=== PATIENT | female | born 1990 | race Caucasian/White ===

== ENCOUNTER 2017-03-22 10:36 | Emergency (ER) | payer BC, OTHER, SELFPAY ==
[2017-03-22] MEDS ORDERED: Sodium Chloride 0.9% 10 ML Syringe FLUSH PRN (11:24)
[2017-03-22] MEDS ORDERED: Ondansetron 4 MG/2 ML SDV IVPUSH ONE (11:25)
[2017-03-22] MEDS ORDERED: HYDROmorphone 1 MG/ML Syringe IVPUSH ONE (11:25)
--- NOTE | 2017-03-22 11:28 | EDM.PDOC ---
ED HPI - General Chief Complaint: KNIFE CUTTER Problem Stated Complaint: POSS. MISCARRIAGE Time Seen by Provider: 03/22/17 11:19 Source of Information: Reports: Patient History Limitations: Reports: No limitations - History of Present Illness INITIAL COMMENTS - FREE TEXT/NARRATIVE: Patient is a 26-year-old female who presents to the ED complaining of vaginal bleeding and some abdominal discomfort. Patient states Monday became nauseated with no emesis. Monday morning developed bleeding from vagina described as bright/dark blood, clear fluid, that was intermittent. She had some intermittent discomfort to her lower abdomen described as a crampy sensation. This morning she awoke with increased blood and clear fluid coming from vagina. She's also noticed some tissue in the toilet and in the shower this morning. Tissue was small in size. States just prior to arrival she's saturating through 2 tampons and 2 pads in a matter of one hour. Still has a sensation that blood is leaking from vagina. States she normally has menstrual cycle 3 times a year. States normally comes on suddenly with approximate one-hour of cramping with no discomfort thereafter. She is unaware when her last menstrual cycle was. She is not on control. She is sexually active and does not use protection. She does note increased sensitivity to her breasts last week and took a test that was negative otherwise she denies any other etiology for potential vaginal bleeding. Denies any additional past medical history, current prescription medications, smoking, alcohol use, recreational drug use. She just recently moved here from [place] and does not have a primary care provider KNIFE CUTTER specialist she sees. She does not know her blood type. She has no history. Timing/Duration: Reports: Constant, Waxing/waning Location, : Reports: abdomen (suprapubic), lower back Quality: Reports: ache Severity: mild Improves with: Reports: None Worsens with: Reports: Other (palpation) Associated Symptoms: Reports: vaginal bleeding, vaginal clots, vaginal tissue, vaginal fluid, moderate amount Treatments PRODUCTION EDITOR: Reports: Other (see below) (none stated) - Related Data Allergies/ADRs: Allergies Allergy/AdvReac Type Severity Reaction Status Date / Time No Known Allergies Allergy Verified 03/22/17 11:03 Home Meds: Home Meds Norgestrel-Ethinyl Estradiol [Cryselle-28 Tablet] 1 each PO QAM #28 tablet 03/22 [Rx] ED ROS GENERAL - Review of Systems Review Of Systems: See Below Constitutional: Denies: fever, chills, decreased appetite Respiratory: Denies: Shortness of Breath, Cough, Sputum Cardiovascular: Denies: Chest pain, Dyspnea on exertion, Lightheadedness, Palpitations GI/Abdominal: Reports: Abdominal pain, Nausea. Denies: Black stool, Bloody stool, Constipation, Diarrhea, Decreased appetite, Distension, Flatus, Hematemesis, Melena, Vomiting : Reports: dysuria, hematuria. Denies: flank pain, frequency, urgency Musculoskeletal: Reports: back pain Neurological: Denies: Dizziness, Difficulty Walking Hematologic/Lymphatic: Denies: anemia, easy bleeding, easy bruising ED EXAM - Physical Exam Exam: See Below Exam Limited By: No limitations General Appearance: alert, WD/WN, no apparent distress Ears: hearing grossly normal Nose: normal inspection Throat/Mouth: Normal inspection, Normal oropharynx, Normal voice, No airway compromise Neck: normal inspection, supple Respiratory/Chest: no respiratory distress, lungs clear, normal breath sounds, no accessory muscle use, chest non-tender Cardiovascular: normal peripheral pulses, regular rate, rhythm, no murmur GI/Abdominal: normal bowel sounds, soft, no organomegaly, no distention, tender (suprapubic) Rectal Exam: Deferred (Female) Exam: Normal bimanual exam, Cervical dilatation (mild), Vaginal bleeding. No: Adnexal tenderness, Cervical discharge, Cervical fluid, Cervical lesions, Cervix motion tenderness, Products of conception, Vaginal discharge, Vaginal lesions, Vaginal tears Back Exam: normal inspection. No: CVA tenderness (L), CVA tenderness (R) Neurological: alert, oriented, CN II-XII intact, normal cognition, no motor/ sensory deficits Psychiatric: normal affect, normal mood Skin Exam: Warm, Dry, Intact, Normal color, No rash Course - Vital Signs Last Recorded V/S: Last Vital Signs Temp 97.7 F 03/22/17 10:55 Pulse 70 03/22/17 14:50 Resp 16 03/22/17 14:50 BP 122/81 03/22/17 14:50 Pulse Ox 98 03/22/17 14:50 - Orders/Labs/Meds Orders: Active Orders 24 hr Category Date Time Status Peripheral IV Care [RC] . DIRECTED Care 03/22/17 11:24 Active Peripheral IV Insertion Adult [OM.PC] Stat Oth 03/22/17 11:24 Ordered Labs: Laboratory Tests 03/22/17 03/22/17 03/22/17 Range/Units 11:26 11:26 11:26 WBC 6.75 (3.98-10.04) K/mm3 RBC 5.08 (3.98-5.22) M/mm3 Hgb 15.5 (11.2-15.7) gm/L Hct 45.8 H (34.1-44.9) % MCV 90.2 (79.4-94.8) fl MCH 30.5 (25.6-32.2) pg MCHC 33.8 (32.2-35.5) g/dl RDW Std Deviation 43.9 (36.4-46.3) fL Plt Count 267 (182-369) K/mm3 MPV 10.5 (9.4-12.3) fl Neut % (Auto) 54.1 (34.0-71.1) % Lymph % (Auto) 33.2 (19.3-51.7) % [place] % (Auto) 10.7 (4.7-12.5) % Eos % (Auto) 1.5 (0.7-5.8) Baso % (Auto) 0.4 (0.1-1.2) % Neut # (Auto) 3.65 (1.56-6.13) K/mm3 Lymph # (Auto) 2.24 (1.18-3.74) K/mm3 [place] # (Auto) 0.72 H (0.24-0.36) K/mm3 Eos # (Auto) 0.10 (0.04-0.36) K/mm3 Baso # (Auto) 0.03 (0.01-0.08) K/mm3 Sodium 143 (136-145) mEq/L Potassium 3.5 (3.5-5.1) mEq/L Chloride 106 (98-107) mEq/L Carbon Dioxide 29 (21-32) mEq/L Anion Gap 11.5 (5-15) BUN 12 (7-18) mg/dL Creatinine 0.9 (0.55-1.02) mg/dL Est Cr Clr Drug Dosing 92.11 mL/min Estimated GFR (MDRD) > 60 (>60) mL/min BUN/Creatinine Ratio 13.3 L (14-18) Glucose 61 L (74-106) mg/dL Calcium 9.1 (8.5-10.1) mg/dL Total Bilirubin 0.3 (0.2-1.0) mg/dL AST 17 (15-37) U/L ALT 32 (14-59) U/L Alkaline Phosphatase 114 (46-116) U/L Total Protein 8.9 H (6.4-8.2) g/dl Albumin 4.6 (3.4-5.0) g/dl Globulin 4.3 gm/dL Albumin/Globulin Ratio 1.1 (1-2) TSH 3rd Generation 1.137 (0.358-3.74) uIU/mL HCG, Qual Negative (NEGATIVE) Urine Color (Yellow) Urine Appearance (Clear) Urine pH (5.0-8.0) Ur Specific [place] (1.005-1.030) Urine Protein (Negative) Urine Glucose (UA) (Negative) Urine Ketones (Negative) Urine Occult Blood (Negative) Urine Nitrite (Negative) Urine Bilirubin (Negative) Urine Urobilinogen (0.2-1.0) Ur Leukocyte Esterase (Negative) Urine RBC (0-5) /hpf Urine WBC (0-5) /hpf Ur Epithelial Cells (0-5) /hpf Urine Bacteria (FEW) /hpf Urine Mucus (FEW) /hpf Blood Type 03/22/17 03/22/17 Range/Units 11:26 12:30 WBC (3.98-10.04) K/mm3 RBC (3.98-5.22) M/mm3 Hgb (11.2-15.7) gm/L Hct (34.1-44.9) % MCV (79.4-94.8) fl MCH (25.6-32.2) pg MCHC (32.2-35.5) g/dl RDW Std Deviation (36.4-46.3) fL Plt Count (182-369) K/mm3 MPV (9.4-12.3) fl Neut % (Auto) (34.0-71.1) % Lymph % (Auto) (19.3-51.7) % [place] % (Auto) (4.7-12.5) % Eos % (Auto) (0.7-5.8) Baso % (Auto) (0.1-1.2) % Neut # (Auto) (1.56-6.13) K/mm3 Lymph # (Auto) (1.18-3.74) K/mm3 [place] # (Auto) (0.24-0.36) K/mm3 Eos # (Auto) (0.04-0.36) K/mm3 Baso # (Auto) (0.01-0.08) K/mm3 Sodium (136-145) mEq/L Potassium (3.5-5.1) mEq/L Chloride (98-107) mEq/L Carbon Dioxide (21-32) mEq/L Anion Gap (5-15) BUN (7-18) mg/dL Creatinine (0.55-1.02) mg/dL Est Cr Clr Drug Dosing mL/min Estimated GFR (MDRD) (>60) mL/min BUN/Creatinine Ratio (14-18) Glucose (74-106) mg/dL Calcium (8.5-10.1) mg/dL Total Bilirubin (0.2-1.0) mg/dL AST (15-37) U/L ALT (14-59) U/L Alkaline Phosphatase (46-116) U/L Total Protein (6.4-8.2) g/dl Albumin (3.4-5.0) g/dl Globulin gm/dL Albumin/Globulin Ratio (1-2) TSH 3rd Generation (0.358-3.74) uIU/mL HCG, Qual (NEGATIVE) Urine Color Yellow (Yellow) Urine Appearance Clear (Clear) Urine pH 6.5 (5.0-8.0) Ur Specific [place] 1.025 (1.005-1.030) Urine Protein Negative (Negative) Urine Glucose (UA) Negative (Negative) Urine Ketones Negative (Negative) Urine Occult Blood 3+ H (Negative) Urine Nitrite Negative (Negative) Urine Bilirubin Negative (Negative) Urine Urobilinogen 0.2 (0.2-1.0) Ur Leukocyte Esterase Negative (Negative) Urine RBC 20-30 H (0-5) /hpf Urine WBC 0-5 (0-5) /hpf Ur Epithelial Cells 0-5 (0-5) /hpf Urine Bacteria Few (FEW) /hpf Urine Mucus Not seen (FEW) /hpf Blood Type O POSITIVE Meds: Medications Discontinued Medications Generic Name Dose Route Start Last Admin Trade Name Freq PRN Reason Stop Dose Admin Hydromorphone HCl 0.25 mg 03/22/17 11:25 03/22/17 11:42 Dilaudid IVPUSH 03/22/17 11:26 0.25 mg ONETIME ONE Administration Hydromorphone HCl 0.25 mg 03/22/17 13:36 03/22/17 13:42 Dilaudid IVPUSH 03/22/17 13:37 0.25 mg ONETIME STA Administration Sodium Chloride 1,000 mls @ 125 mls/hr 03/22/17 11:30 03/22/17 11:35 Normal Saline IV 125 mls/hr ASDIRECTED MONICA Administration Ondansetron HCl 4 mg 03/22/17 11:25 03/22/17 11:40 Zofran IVPUSH 03/22/17 11:26 4 mg ONETIME ONE Administration Sodium Chloride 10 ml 03/22/17 11:24 03/22/17 11:36 Saline Flush FLUSH 10 ml ASDIRECTED PRN Administration Keep Vein Open - Re-Assessments/Exams Free Text/Narrative Re-Assessment/Exam: 03/22/17 11:27 Ordered peripheral IV with normal saline 125 mL per hour, Dilaudid 0.25 mg IVP, Zofran 4 mg IVP, CBC, chem 14, qualitative hCG, TSH, ABO type RH sensivity,and UA. 03/22/17 13:07 Labs reviewed: Hemoglobin 15.5, chem 14 essentially normal, hCG was negative, UA negative for infection, 3+ blood, RBCs 20-30. Patient is O Positive. Blood sugar 61. Patient given juice/pop. 1307 Reassessment, patient states bleeding has subsided. She still has some cramping to her lower pelvic region. No pain to the right and left adnexa. With further questioning patient had sexual intercourse course Monday and developed pain at the end. Patient states they had to stop secondary to the pain. Pain is described as crampy sensation that was relieved with going to the bathroom. She had no bleeding at that time. She has no history of STDs and she is in a monogamous relationship currently. She has no history of ovarian cyst. Will have the patient moved to room #8 for vaginal exam. Vaginal exam was completed. See examination notes for further details. 03/22/[address] Ragland ship's electronic warfare officer KNIFE CUTTER specialist. Suggest patient may have PCOS due to body habitus and also irregular menstrual cycles. Most likely heavy bleeding is associated with thickening of the endometrium since she has irregular periods. She is most likely having her menstrual cycle currently. Suggested patient be placed on control if patient request regular menstrual cycles, suction plate carrier cleaner bleeding, and less pain. He would see the patient back in 5 weeks. Discussed this with the patient. She states she does have a family history of PCOS. States her sisters have had similar issues. She requested to be placed on control today to regulate her menstrual cycle. Will discharge patient home with instructions and a prescription for control. She will see Dr. Ragland in 5 weeks for reevaluation. Patient was instructed to return back to the ED if she has any additional concerns or questions. Departure - Departure Time of Disposition: 14:06 Disposition: Home, Self-Care 01 Condition: good Clinical Impression: Episode of heavy vaginal bleeding, Menstrual cycle problem Prescriptions: Norgestrel-Ethinyl Estradiol [Cryselle-28 Tablet] 1 each PO QAM #28 tablet Instructions: Menorrhagia, [id number] Referrals: PCP,None [Primary Care Provider] - Derek Ragland MD [Physician] - Forms: ED Department Discharge Additional Instructions: Take the control as prescribed. Followup with Dr. Ragland in 5 weeks for reevaluation and treatment. Contact his office tomorrow for an appointment. Return back to the ED if you experience vaginal bleeding, one pad a hour for 2 hours. Prescription was transmitted to [facility]. For pain take Tylenol and ibuprofen in alternating fashion. - My Orders Last 24 Hours: My Active Orders 03/22/17 11:24 Peripheral IV Care [RC] . DIRECTED Peripheral IV Insertion Adult [OM.PC] Stat - Assessment/Plan Last 24 Hours: My Active Orders 03/22/17 11:24 Peripheral IV Care [RC] . DIRECTED Peripheral IV Insertion Adult [OM.PC] Stat
[2017-03-22] MEDS ORDERED: Sodium Chloride 0.9% 1,000 ML IV SCH (11:30)
[2017-03-22] MEDS ORDERED: HYDROmorphone 1 MG/ML Syringe IVPUSH STA (13:36)
[2017-03-22 14:52] VITALS: BP 122/81
== END 2017-03-22 14:15 | disposition home or self-care (01) ==
LOC: JD.ED 10:36
DX: N93.8 Other specified abnormal uterine and vaginal bleeding (principal)
CPT/HCPCS: 36415; 80053; 81001; 84443; 84703; 85025; 86900; 86901; 96361; 96374; 96375; 96376; 99284; J1170; J2405; J7040; J7050